=== PATIENT | male | born 2005 | race Native Hawaiian/Other Pacific Islander ===

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

== ENCOUNTER 2023-01-10 22:14 | Emergency (ER) | payer SELFPAY ==
[~2023-01-10] VITALS: Ht 167 cm; Wt 99.0 kg
[2023-01-10 22:39] VITALS: BP 134/83
[2023-01-10] MEDS ORDERED: AMOXICILLIN/Clavulanate 875 MG TABLET PO STA (22:46)
--- NOTE | 2023-01-10 22:53 | ED EENT ---
History of Present Illness General Chief Complaint: Ear Problems Stated Complaint: RT EAR DRAINAGE, HARD OF HEARING, SOME PAIN Source: patient Exam Limitations: no limitations History of Present Illness Date Seen by Provider: Jan 10, 2023 Time Seen by Provider: 22:18 Initial Comments 17-year-old male with no pertinent past medical history coming in due to right ear pain and drainage. Pain and drainage started about a week ago. He took some Tylenol which did help. Denies any fever, hearing changes, jaw pain, or any other concerns. Allergies and Home Medications Allergies Coded Allergies: No Known Drug Allergies (Unverified , 07/04/22) Patient Home Medication List Home Medication List Reviewed: Yes Review of Systems Review of Systems Constitutional: No fever Eyes: No Symptoms Reported Ears: See HPI Nose: no symptoms reported Mouth: no symptoms reported Throat: no symptoms reported Respiratory: no symptoms reported Cardiovascular: no symptoms reported Gastrointestinal: no symptoms reported Musculoskeletal: no symptoms reported Skin: no symptoms reported Past Jjiobpl-Noehov-Afdabk Hx Patient Social History Tobacco Use?: No Immunizations Up To Date First/Initial COVID19 Vaccinat: 2021 Second COVID19 Vaccination Addi: 2021 Third COVID19 Vaccination Date: NONE Physical Exam Height, Weight, BMI Height: '" Weight: lbs. oz. kg; 30.00 BMI Method: General Appearance: WD/WN, no apparent distress Eyes: bilateral eye normal inspection Ears: right ear TM dull, right ear TM red, right ear TM bulging; left ear TM normal; bilateral ear auricle normal, bilateral ear canal normal Nose: normal inspection Mouth/Throat: pharynx normal Neck: non-tender, full range of motion, supple, normal inspection Cardiovascular: regular rate, rhythm, no edema, no murmur Respiratory: chest non-tender, lungs clear, normal breath sounds, no respiratory distress, no accessory muscle use Gastrointestinal: normal bowel sounds, non tender, soft; No distended, No guarding, No rebound Neurologic/Psychiatric: no motor/sensory deficits, alert, normal mood/affect Skin: normal color, warm/dry Progress/Results/Core Measures Results/Orders My Orders Orders - CARMEN CHAUHAN MD Amoxicillin/Clavulanate Tablet (Amoxicil (01/10/23 22:46) Ibuprofen Tablet (Ibuprofen Tablet) (01/10/23 23:00) Progress Progress Note : Progress Note 17-year-old male with above history coming in due to right ear pain and drainage. ABCs were intact and vitals were stable on presentation. Physical exam with for acute otitis media. No obvious perforation. We will give him antibiotics here followed by prescription. I will recommend following up with Dr. Clarke if he is not seeing improvement given his anatomy does look somewhat unusual He has not been in any lakes, pools, hot tubs, or had his head submerged u nderwater at all. Would be very low risk for Pseudomonas Departure Impression Primary Impression: Otitis media Qualified Codes: H66.001 - Acute suppurative otitis media without spontaneous rupture of ear drum, right ear Disposition: HOME, SELF-CARE Condition: Stable Departure-Patient Inst. Decision time for Depature: 23:00 Referrals: NISHANT CLARKE MD NO,LOCAL PHYSICIAN (PCP) Primary Care Physician Patient Instructions: Ear Infections (Otitis Media) in Adults (DC) Add. Discharge Instructions: You will be on antibiotics for the next week. If you do not see improvement after that time, follow-up with Dr. Clarke. His numbers in this paperwork. Take ibuprofen and or Tylenol as needed for pain. Scripts Amoxicillin/Potassium Clav (Amox Tr-K Clv 875-125 mg Tab) 875 Mg-125 Mg Tablet 1 EACH PO BID for 7 Days, #14 TAB Prov: CARMEN CHAUHAN MD 01/10/23 Work/School Note: Work Release Form Date Seen in the Emergency Department: Jan 10, 2023 Return to Work: Jan 12, 2023 Restrictions: No Restrictions CARMEN CHAUHAN MD Jan 10, 2023 22:53
[2023-01-10] MEDS ORDERED: AMOX1TAB12 PO (22:55)
[2023-01-10] MEDS ORDERED: IBUPROFEN 600 MG TABLET PO ONE (23:00)
== END 2023-01-10 23:08 | disposition home or self-care (01) ==
LOC: EDUNIT# 22:14 → ER 22:18
DX: H66.91 Otitis media, unspecified, right ear (principal)
CPT/HCPCS: 99283